=== PATIENT | female | born 1990 | race Caucasian/White ===

== ENCOUNTER 2024-04-13 23:10 | Emergency (ER) | payer OTHER, MEDICAID ==
[~2024-04-13] VITALS: Ht 154.9 cm; Wt 63.5 kg
[2024-04-14 00:28] LABS: Basophils # (auto) 0 10 ^3/uL (0-0.2); Basophils % (auto) 0.2 % (0.0-2.0); Eosinophils # (auto) 0.1 10 ^3/uL (0-0.8); Eosinophils % (auto) 0.4 % (0.0-7.0); Hematocrit 37.9 % (36.0-46.0); Hemoglobin 12.6 g/dL (12.2-16.2); Lymphocytes # (auto) 1.2 10 ^3/uL (0.4-5.4); Mean Corpuscular Hemoglobin 30.1 pg (28.0-32.0); Mean Corpuscular Hgb Conc. 33.3 g/dL (32.0-36.0); Mean Corpuscular Volume 90.4 fL (80.0-100.0); Monocytes # (auto) 0.2 10 ^3/uL (0-1.3); Monocytes % (auto) 1.5 % (0.0-12.0); Neutrophils # (auto) 11.5 10 ^3/uL (1.6-8.6); Neutrophils % (auto) 88.9 % (37.0-80.0); Red Blood Cells 4.19 10^6/uL (4.0-5.20); Red Cell Distribution Width 12.9 % (11.8-14.3)
[2024-04-14 00:45] LABS: Albumin 4.3 g/dL (3.2-4.8); Alkaline Phosphatase 107 U/L (46-116); Anion Gap 6 (5-15); Aspartate Aminotransferase 353 U/L (13-40); BUN/Creatinine Ratio 21.3 (10.0-20.0); Blood Urea Nitrogen 17 mg/dL (9-23); Calcium 9.4 mg/dL (8.7-10.4); Carbon Dioxide 27 mmol/L (20-30); Chloride 102 mmol/L (98-107); Glucose 217 mg/dL (74-106); Potassium 3.5 mmol/L (3.5-5.1); Sodium 135 mmol/L (136-145)
[2024-04-14 00:46] LABS: Bilirubin, Total 0.5 mg/dL (0.2-1.0)
[2024-04-14 00:55] LABS: Lipase 42 U/L (12-53)
[2024-04-14 00:57] LABS: Alanine Aminotransferase 126 U/L (7-40)
[2024-04-14 03:02] VITALS: BP 110/72; PULSE 102; RESP 20; TEMP 98.1; O2SAT 99
[2024-04-14] MEDS: METOCLOPRAMIDE HCL 5MG/ml INJ 2ml VIAL IM ONE (03:11)
[2024-04-14] MEDS: LORazepam 2MG/ML-1ML VIAL IM ONE (03:12)
[2024-04-14] MEDS ORDERED: METO-281 PO (03:43)
[2024-04-14] MEDS ORDERED: LORA-1121 PO (03:43)
[2024-04-15] MEDS ORDERED: LORA-655 PO (19:22)
[2024-04-15] MEDS ORDERED: METO-281 PO (19:24)
== END 2024-04-14 04:07 | disposition home or self-care (01) ==
LOC: EDBD 23:10 → ER 23:10
DX: F41.1 Generalized anxiety disorder (principal); R10.2 Pelvic and perineal pain; F32.9 Major depressive disorder, single episode, unspecified; E11.9 Type 2 diabetes mellitus without complications; Z98.890 Other specified postprocedural states
CPT/HCPCS: 36415; 80053; 83690; 84702; 85025; 96372; 99284; J2060; J2765